=== PATIENT | female | born 1945 | race Caucasian/White ===

== ENCOUNTER → 2016-10-18 16:15 | Outpatient (CLI) | payer MEDICARE ==
[2015-01-09 13:09] VITALS: BMI 39.0
[~2016-10-18 16:15] MED LIST: ACETAMINOPHEN500 M1 PO; BAYER CHEWABLE81 MG PO; CALAN120 MG PO; CELEXA20 MG PO; CORDARONE200 MG PO; COZAAR50 MG PO; ELAVIL25 MG PO; FLOVENT DI50 MCG/DIS INH; FLUTICASONE PRO16 GM NASAL; HYDROCHLOROTH12.5 M1 PO; HYDROCODON-ACE1 EAC7 PO; K-DUR20 MEQ PO; LASIX40 MG PO; LOPRESSOR25 MG PO; MIRALAX17 GM PO; MULTIPLE VITAMI1 TA1 PO; POTASSIUM99 M1; PRILOSEC20 MG PO; RUTIN; RUTIN PO; SINGULAIR10 MG PO; VITAMIN C1000 MG PO; VITAMIN E400 UNI2 PO; ZOCOR40 MG PO; [UNRECOGNIZED DRUG - OTHER]
== END | disposition home or self-care (01) ==
LOC: D.MAMMO 11:15
DX: Z12.31 Encounter for screening mammogram for malignant neoplasm of breast (principal)

== ENCOUNTER 2016-11-22 08:41 | Outpatient (CLI) | payer MEDICARE ==
[2015-01-09 13:09] VITALS: BMI 39.0
== END 2016-11-22 09:41 ==
LOC: D.MAMMO 08:41
DX: R92.8 Other abnormal and inconclusive findings on diagnostic imaging of breast (principal)

== ENCOUNTER → 2017-10-18 18:47 | Outpatient (CLI) | payer MEDICARE ==
[2015-01-09 13:09] VITALS: BMI 39.0
== END | disposition home or self-care (01) ==
LOC: D.MAMMO 09:45
DX: Z12.31 Encounter for screening mammogram for malignant neoplasm of breast (principal)

== ENCOUNTER → 2017-10-25 09:33 | Outpatient (CLI) | payer MEDICARE ==
[2015-01-09 13:09] VITALS: BMI 39.0
== END | disposition home or self-care (01) ==
LOC: D.NM 09:33
DX: E83.52 Hypercalcemia (principal)

== ENCOUNTER 2018-10-21 08:00 | Outpatient (CLI) | payer OTHER ==
[2015-01-09 13:09] VITALS: BMI 39.0
== END 2018-10-21 09:00 | disposition home or self-care (01) ==
LOC: D.MAMMO 08:00
PROVIDERS: ATTEND Clinical Nurse Specialist Adult Health
DX: Z12.31 Encounter for screening mammogram for malignant neoplasm of breast (principal)

== ENCOUNTER → 2019-02-03 08:42 | Outpatient (CLI) | payer OTHER ==
[2015-01-09 13:09] VITALS: BMI 39.0
== END | disposition home or self-care (01) ==
LOC: D.NM 08:42
PROVIDERS: ATTEND Nurse Practitioner
DX: E21.3 Hyperparathyroidism, unspecified (principal)

== ENCOUNTER 2019-11-19 09:00 | Outpatient (CLI) | payer OTHER ==
[2015-01-09 13:09] VITALS: BMI 39.0
== END 2019-11-19 10:00 | disposition home or self-care (01) ==
LOC: D.MAMMO 09:00
PROVIDERS: ATTEND Clinical Nurse Specialist Adult Health
DX: Z12.31 Encounter for screening mammogram for malignant neoplasm of breast (principal)

== ENCOUNTER 2020-01-08 10:10 | Emergency (ER) | payer OTHER ==
[~2020-01-08] VITALS: Ht 165.1 cm; Wt 92.5 kg
[2020-01-08 10:34] VITALS: Ht 165.1 cm; Wt 92.5 kg
[2020-01-08] MEDS ORDERED: DICLOFENAC SODI50 MG PO (12:07)
[2020-01-08 12:58] VITALS: BP 160/84
== END 2020-01-08 12:59 | disposition home or self-care (01) ==
LOC: D.ER 10:10
DX: M25.552 Pain in left hip (principal); M79.10 Myalgia, unspecified site; I10 Essential (primary) hypertension

== ENCOUNTER 2020-11-29 10:15 | Outpatient (CLI) | payer OTHER ==
[2020-01-08 10:34] VITALS: BMI 39.0
[~2020-11-29 10:15] MED LIST changes: +DICLOFENAC SODI50 MG PO
== END 2020-11-29 23:59 | disposition home or self-care (01) ==
LOC: D.MAMMO 10:15
PROVIDERS: ATTEND Family Medicine
DX: Z12.31 Encounter for screening mammogram for malignant neoplasm of breast (principal)